=== PATIENT | female | born 1980 | race Caucasian/White ===

== ENCOUNTER 2019-07-23 21:16 | Observation (INO) ==
[2019-07-23] MEDS ORDERED: ONDANSETRON 4 MG/2 ML VIAL IV STA (22:05)
[2019-07-23] MEDS ORDERED: ASPIRIN 325 MG TABLET PO STA (22:05)
[2019-07-23] MEDS ORDERED: METOPROLOL TARTRATE 25 MG TABLET PO STA (22:05)
[2019-07-23] MEDS ORDERED: MORPHINE 4 MG/1 ML VIAL IV STA (22:05)
[2019-07-23] MEDS ORDERED: NITROGLYCERIN 2% OINT 1 INCH/GM PACK TOP STA (22:05)
[2019-07-23] MEDS ORDERED: ALUM/MAG/SIMETH/LIDO VISC 1:1 30 ML BOTTLE PO STA (22:05)
[2019-07-23 22:07] LABS: Basophils # 0.1 10*3/uL (0.0-0.2); Basophils % 0.8 % (0.0-0.8); Hematocrit 37.2 VOL% (35.7-47.0); Hemoglobin 12.3 GM/DL (12.0-16.0); Immature Granulocytes % 0.2 %; Immature Granulocytes Absolute 0.02 #; Lymphocytes # 1.4 10*3/uL (1.4-4.0); Lymphocytes % 15.6 % (21.3-54.2); Mean Corpuscular HGB Conc 33.1 GM/DL (32-36); Mean Corpuscular Volume 90.7 FL (87-102); Monocytes % 6.3 % (1.7-12.7); Neutrophils % 77.1 % (38.7-73.9); Platelet Count 445 T/CUMM (130-400); Red Cell Distribution Width 11.9 % (9.3-17.3); White Blood Count 8.7 T/CUMM (4-12)
[2019-07-23 22:19] LABS: PT Patient Result 10.9 SECS (9.8-11.9)
[2019-07-23 22:22] LABS: Albumin 4.2 G/DL (3.4-5.0); Bilirubin,Total 0.5 MG/DL (0.2-1.0); Calcium 9.5 MG/DL (8.5-10.1); Osmolality,Calculated 272.8 MOS/KG (273-304); Total Protein 7.9 G/DL (6.4-8.3)
[2019-07-23] MEDS ORDERED: METOPROLOL TARTRATE 5 MG/5 ML VIAL IV STA (23:24)
[2019-07-24] MEDS ORDERED: DEXTROSE 50% 25 GM/50 ML VIAL IV PRN (00:25)
[2019-07-24] MEDS ORDERED: GLUCAGON 1 MG VIAL IM PRN (00:25)
[2019-07-24] MEDS ORDERED: ACETAMINOPHEN 325 MG TABLET PO PRN (00:31)
[2019-07-24] MEDS ORDERED: MORPHINE 4 MG/1 ML VIAL IV PRN (00:31)
[2019-07-24] MEDS ORDERED: ALUM/MAG/SIMETH/LIDO VISC 1:1 30 ML BOTTLE PO PRN (00:31)
[2019-07-24] MEDS ORDERED: ONDANSETRON 4 MG/2 ML VIAL IV PRN (00:31)
[2019-07-24] MEDS ORDERED: NITROGLYCERIN SL 0.4 MG TABLET SL PRN (00:31)
[2019-07-24] MEDS ORDERED: traMADol 50 MG TABLET PO PRN (00:31)
[2019-07-24] MEDS ORDERED: BISACODYL 5 MG TABLET PO PRN (00:31)
[2019-07-24] MEDS ORDERED: hydrALAZINE 20 MG/1 ML VIAL IV PRN (00:54)
[2019-07-24] MEDS ORDERED: ZALEPLON 5 MG CAPSULE PO PRN (00:55)
[2019-07-24 01:45] LABS: Basophils % 0.3 % (0.0-0.8); Hematocrit 36.5 VOL% (35.7-47.0); Hemoglobin 12.1 GM/DL (12.0-16.0); Immature Granulocytes % 0.5 %; Immature Granulocytes Absolute 0.05 #; Lymphocytes % 8.9 % (21.3-54.2); Mean Corpuscular HGB Conc 33.2 GM/DL (32-36); Mean Corpuscular Volume 90.3 FL (87-102); Mean Platelet Volume 11.3 FL (9.6-12.0); Monocytes % 8.9 % (1.7-12.7); Neutrophils % 81.4 % (38.7-73.9); Platelet Count 424 T/CUMM (130-400); Red Blood Count 4.04 MC/CUMM (3.8-5.5); Red Cell Distribution Width 12.1 % (9.3-17.3)
[2019-07-24 03:26] LABS: HDL Cholesterol 50 MG/DL (40-60); Risk Ratio 2.92; Triglycerides 103 MG/DL (2-150); Troponin I < 0.015 NG/ML (0.00-0.045); VLDL CHOLESTEROL 20.6 MG/DL
[2019-07-24 03:54] LABS: Partial Thromboplastin Time 27.6 SECS (23.9-33.8)
[2019-07-24] MEDS ORDERED: METOPROLOL SUCCINATE XL 25 MG TABLET PO SCH (09:00)
[2019-07-24] MEDS ORDERED: PANTOPRAZOLE 40 MG TABLET PO SCH ×2 (09:00)
[2019-07-24] MEDS ORDERED: amLODIPine 2.5 MG TABLET PO SCH (09:00)
[2019-07-24] MEDS ORDERED: METOPROLOL SUCCINATE XL 50 MG TABLET PO SCH (09:00)
[2019-07-24] MEDS: tiZANidine 4 MG TABLET PO SCH ×2 (09:33)
[2019-07-24] MEDS: MELOXICAM 7.5 MG TABLET PO SCH ×2 (09:33)
[2019-07-24] MEDS: CLORAZEPATE 3.75 MG TABLET PO SCH ×2 (09:33)
[2019-07-24] MEDS: ESCITALOPRAM 10 MG TABLET PO SCH ×2 (09:33)
[2019-07-24] MEDS: ENOXAPARIN 40 MG/0.4 ML SYRINGE SUBCUT SCH ×2 (09:33)
[2019-07-24 11:27] LABS: Barbiturates Screen,Urine Negative (Negative); Benzodiazepines Screen,Urine Negative (Negative); Cannabinoid Screen,Urine Negative (Negative); Opiate Screen,Urine Positive (Negative); Phencyclidine Screen,Urine Negative (Negative)
[2019-07-24 11:59] VITALS: BP 158/96
[2019-07-24] MEDS ORDERED: APIXABAN 5 MG TABLET PO ONE (12:03)
[2019-07-24] MEDS ORDERED: amLODIPine 5 MG TABLET PO ONE (14:32)
[2019-07-25] MEDS ORDERED: ASPIRIN EC 325 MG TABLET PO SCH (09:00)
== END 2019-07-24 16:09 | disposition home or self-care (01) ==
LOC: N.EDINP 21:16 → N.ED 21:16 → N.3E 07-24 03:36
PROVIDERS: ADMIT Internal Medicine; ATTEND Internal Medicine